=== PATIENT | female | born 1940 | race Caucasian/White ===

== ENCOUNTER → 2018-12-07 | Day surgery (SDC) | payer MEDICARE ==
[~2018-12-07] MED LIST: BENADRYL PO; CALCIUM PO; CYCLOBENZAPRINE5 MG PO; FENTANYL CITRATE/PF 100MCG/2 ML INJ ONE; GABAPENTIN300 MG PO; HYDROCHLOROTHIA25 MG PO; IOPAMIDOL 200 MG/ML 20 ML VIAL IT ONE; LEXAPRO10 MG PO; LIDOCAINE HCL 1% 30ML-PF VIAL ONE; LIDOCAINE HCL 2% LOCAL INJ 5 ML SDV VIAL INJ ONE; LIPITOR20 MG PO; LISINOPRIL10 MG PO; MIDAZOLAM HCL 2 MG/2 ML VIAL ONE; MULTIVITAMINS1 EAC7 PO; ONDANSETRON HCL INJ 2MG/ML 2ML 2 MG/ML VIAL ONE; PROPOFOL IV EMULSION 10 MG/ML 20 ML VIAL ONE; TRAZODONE HCL100 MG PO; TRIAMCINOLONE ACET 40 MG/ML VIAL ONE; TYLENOL PO; XALATAN2.5 ML OU
--- OUTSIDE RECORDS SUMMARY | 2018-12-07 06:10 | XMS REPORT | Clinical Summary ---
Author Author [facility] Organization [facility] Address Unknown Phone Unavailable Care Team Providers Care Field Installer Name Role Phone Marshall Bales MD PCP Allergies Comments Active Allergy Reactions Severity Noted Date Penicillins 05/19/2018 Medications End Date Status Medication Sig Dispensed Refills Start Date Active lisinopril TK 1 T PO QD 0 (PRINIVIL,ZESTRIL) 10 mg 8 tablet Active hydroCHLOROthiazide TK 1 T PO QD 0 (HYDRODIURIL) 25 MG 8 tablet Active traZODone (DESYREL) 100 TK 1 T PO 0 MG tablet QHS 9 Active LOTEMAX 0.5 % drops,gel INT 1 GTT IN 0 OD QID 8 Active diclofenac (VOLTAREN) 1 % Apply 1 Tube 1 gel topically 4 9 (four) times a day. 06/18/2018 traMADol (ULTRAM) 50 mg Take 1 tablet 60 tablet 0 tablet (50 mg total) 9 by mouth every 4 (four) hours as needed (pain) for up to 30 days. Active Problems No known active problems Encounters Care Team Description Date Type Specialty Marc Nichols MD Glenohumeral arthritis, left (Primary Dx); Rotator cuff tear arthropathy of left shoulder 05/19/2018 Office Visit Orthopedic Surgery [place] Sol MA Pain (Primary Dx) 05/18/2018 Orders Only Orthopedic Surgery after 12/06/2017 Family History Medical History Relation Name Comments Cancer Father Diabetes Father Hypertension Father Heart disease Mother Hypertension Mother Stroke Mother Relation Name Status Comments Father Mother Social History Date Tobacco Use Types Packs/Day Years Used Never Smoker Smokeless Tobacco: Never Used Alcohol Use Drinks/Week oz/Week Comments No Alcohol Habits Answer Date Recorded How often do you have a drink containing alcohol? Never 05/19/2018 How many drinks containing alcohol do you have on Not asked a typical day when you are drinking? How often do you have six or more drinks on one Not asked occasion? Sex Assigned at Date Recorded Not on file Industry Job Start Date Occupation Not on file Not on file Not on file Travel End Travel History Travel Start No recent travel history available. Last Filed Vital Signs Time Taken Vital Sign Reading 05/19/2018 1:42 PM DIGITAL MEDIA STRATEGIST Blood Pressure 132/65 05/19/2018 1:42 PM DIGITAL MEDIA STRATEGIST Pulse 72 - Temperature - - Respiratory Rate - - Oxygen Saturation - - Inhaled Oxygen - Concentration - Weight - - Height - - Body Mass Index - Plan of Treatment Health Maintenance Due Date Last Done Comments SHINGLES VACCINES (#1) 1991 65+ PNEUMOCOCCAL VACCINE 2006 (1 of 2 - PCV13) INFLUENZA VACCINE 11/23/2018 Results Not on fileafter 12/06/2017 Insurance Type Payer Benefit Subscriber ID Effective Phone Address Plan / Dates Group Medicare MEDICARE MEDICARE xxxxxxxxxxx 2006-P [place], PART A AND resent [place] B Commercial AARP AARP xxxxxxxxx-xx 2007-P SUPPLEMENT resent Advance Directives Patient has advance care planning documents on file. For more information, yancy ortiz contact: Suhail Gusman [address] [place] [address]
[2018-12-07 09:00] VITALS: BP 128/62
== END | disposition home or self-care (01) ==
LOC: OR 06:08
PROVIDERS: ATTEND Physical Medicine & Rehabilitation Pain Medicine
DX: M47.892 Other spondylosis, cervical region (principal); M54.12 Radiculopathy, cervical region; M47.816 Spondylosis without myelopathy or radiculopathy, lumbar region; M54.16 Radiculopathy, lumbar region; I10 Essential (primary) hypertension; F41.9 Anxiety disorder, unspecified; Z88.0 Allergy status to penicillin; Z01.810 Encounter for preprocedural cardiovascular examination; Z87.891 Personal history of nicotine dependence
CPT/HCPCS: 64490; 64491; 64492; 93005; J2001 ×2; J2250; J2405; J2704; J3010; J3301; Q9967; 77003

== ENCOUNTER → 2018-12-28 | Day surgery (SDC) | payer MEDICARE ==
[~2018-12-28] MED LIST changes: -MIDAZOLAM HCL 2 MG/2 ML VIAL ONE; -ONDANSETRON HCL INJ 2MG/ML 2ML 2 MG/ML VIAL ONE
--- OUTSIDE RECORDS SUMMARY | 2018-12-28 06:01 | XMS REPORT | Clinical Summary ---
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 Last Filed Vital Signs Reading Time Taken Comments Vital Sign 132/65 05/19/2018 1:42 PM OUTSIDE DEALER SALES REPRESENTATIVE Blood Pressure 72 05/19/2018 1:42 PM OUTSIDE DEALER SALES REPRESENTATIVE Pulse - - Temperature - - Respiratory Rate - - Oxygen Saturation - - Inhaled Oxygen Concentration - - Weight - - Height - - Body Mass Index Plan of Treatment Health Maintenance Due Date Last Done Comments SHINGLES VACCINES (#1) 1991 65+ PNEUMOCOCCAL VACCINE 2006 (1 of 2 - PCV13) INFLUENZA VACCINE 11/23/2018 Results Not on fileafter 12/27/2017 Insurance Type Payer Benefit Subscriber ID Effective Phone Address Plan / Dates Group Medicare MEDICARE MEDICARE xxxxxxxxxxx 2006-P [place], PART A AND resent [place] B Commercial AARP AARP xxxxxxxxx-xx 2007-P SUPPLEMENT resent Advance Directives For more information, please contact: [phone] 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
[2018-12-28 08:29] VITALS: BP 110/68
== END | disposition home or self-care (01) ==
LOC: OR 05:58
PROVIDERS: ATTEND Physical Medicine & Rehabilitation Pain Medicine
DX: M47.896 Other spondylosis, lumbar region (principal); M47.892 Other spondylosis, cervical region; M54.16 Radiculopathy, lumbar region; M54.12 Radiculopathy, cervical region; I10 Essential (primary) hypertension; E78.5 Hyperlipidemia, unspecified; Z88.1 Allergy status to other antibiotic agents; Z88.0 Allergy status to penicillin; Z87.891 Personal history of nicotine dependence
CPT/HCPCS: 64493; 64494; 64495; J2001 ×2; J2704; J3010; J3301; Q9967; 77003

== ENCOUNTER → 2019-02-22 | Day surgery (SDC) | payer MEDICARE ==
[~2019-02-22] MED LIST changes: +ASPIRIN325 MG PO; +MIDAZOLAM HCL 2 MG/2 ML VIAL ONE
[2019-02-22 10:15] VITALS: BP 116/63
== END | disposition home or self-care (01) ==
LOC: OR 07:45
PROVIDERS: ATTEND Physical Medicine & Rehabilitation Pain Medicine
DX: M47.896 Other spondylosis, lumbar region (principal); M54.16 Radiculopathy, lumbar region; M54.12 Radiculopathy, cervical region; M48.02 Spinal stenosis, cervical region; G89.29 Other chronic pain; I10 Essential (primary) hypertension; E78.5 Hyperlipidemia, unspecified; Z88.0 Allergy status to penicillin; Z88.1 Allergy status to other antibiotic agents; Z79.82 Long term (current) use of aspirin; Z87.891 Personal history of nicotine dependence
CPT/HCPCS: 64490; 64493; 64494; 64495; J2001 ×2; J2250; J2704; J3010; J3301; Q9967; 77003